=== PATIENT | female | born 1990 | race Caucasian/White ===

== ENCOUNTER 2020-02-24 07:38 | Inpatient (IN) ==
[2020-02-24] MEDS ORDERED: OXYTOCIN 30 UNITS/500 ML BAG IV PRN ×3 (07:51→23:04)
[2020-02-24 08:32] LABS: Hematocrit (blood only) 38.4 % (37-47); Hemoglobin 13.2 g/dL (12.0-16.0); Mean Corpuscular Hemoglobin 33.4 pg (25-34); Mean Corpuscular Volume 97.2 fL (80-100); Mean Platelet Volume 9.7 fL (7.4-10.4); Platelet Count 176 K/uL (130-400); RDW Coefficient of Variation 12.3 % (11.5-14.5); RDW Standard Deviation 43.6 fL (36.4-46.3); Red Blood Count 3.95 M/uL (4.2-5.4); White Blood Count 7.61 K/uL (4.8-10.8)
[2020-02-24 08:33] LABS: Mean Corpuscular Hgb Conc 34.4 g/dL (32-36)
[2020-02-24] MEDS: LACTATED RINGER'S 1,000 ML IV PRN ×3 (09:30→19:55)
--- NOTE | 2020-02-24 10:10 | History & Physical Report ---
Date of Service February 24, 2020 Assessment & Plan (1) Supervision of normal intrauterine in primigravida: 29yo at 41.1 weeks GA. IOL 1. Fetus: Cat 1 2. Labor: Will start with oxytocin, AROM when able 3. Vitals: WNL 4: GBS negative (2) VSD (ventricular septal defect): Normal ECHO History of Present Illness Primary Care Provider: Louise Morel PA-C 29yo at 41.1 weeks GA. Presents for late term IOL. reporting regular mild contractions. No LOF, or VB. Good FM. 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 Pt not changing cat litter. current occupational status: employed current occupation: manager installation @ [employer] Other Information That Helps Us Care for You: No Feels Safe at Home: Yes Safety Concerns: Feels Safe At This Time Smoking Status: Never smoker Hx Alcohol Use: No Hx Substance Use: No Physical Exam Constitutional: WD/WN, vitals as above well developed, well nourished and + well hydrated; no acute distress Eyes: PERRL, conjunctivae normal, anicteric sclerae ENMT: external ear and nose normal, oropharynx normal Neck: trachea midline, no thyromegaly Respiratory: normal respiratory effort, lungs clear to auscultation no respiratory distress, no labored breathing and no cough Skin: no rashes, warm and dry normal turgor Psychiatric: A+Ox3, euthymic affect Apperance: appropriately dressed and appropriately groomed Genitourinary: normal external appearance Manual OB Exam: + cervical dilation (1.5), + cervical effacement 70% and + station -1 OB Exam Monitor Tracing: + external FHT monitor used, + external uterine monitor used, + category I and + normal FHT variability; no early decelerations present, no late decelerations present and no variable decelerations Lymphatic: no cervical or axillary lymphadenopathy Results & Data Vital Signs (Past 12 Hours) Vital Signs Temp Pulse Resp BP 02/24/20 10:01 77 112/70 02/24/20 09:18 82 114/78 02/24/20 07:52 36.9 C 91 H 20 116/77 Coding Level of Care Code None Diagnoses Supervision of normal intrauterine in primigravida Z34.00 VSD (ventricular septal defect) Q21.0
--- NOTE | 2020-02-24 14:15 | Labor Progress Brief Note ---
Date of Service February 24, 2020 Subjective Reason For Note: Routine Evaluation Current Pain Level(1-10): 4 Assessment & Plan (1) Supervision of normal intrauterine in primigravida: 29yo at 41.1 weeks GA. IOL 1. Fetus: Cat 1 2. Labor: Will start with oxytocin, AROM for thin mec 3. Vitals: WNL 4: GBS negative (2) VSD (ventricular septal defect): Normal ECHO Physical Exam Genitourinary: OB Exam Abdomen: + vertex Manual OB Exam: + cervical dilation 3 cm, + cervical effacement 70%, + station -1 and + amniotic fluid meconium OB Exam Monitor Tracing: + external FHT monitor used, + external uterine monitor used, + category I and + normal FHT variability; no early decelerations present, no late decelerations present and no variable decelerations Results & Data Vital Signs (Past 12 Hours) Vital Signs Temp Pulse Resp BP 02/24/20 14:02 65 94/54 L 02/24/20 13:02 77 20 111/67 02/24/20 12:01 36.6 C 72 20 111/69 02/24/20 11:07 36.8 C 69 20 108/68 02/24/20 10:01 77 112/70 02/24/20 09:18 82 114/78 02/24/20 07:52 36.9 C 91 H 20 116/77 Coding Level of Care Code None Diagnoses Supervision of normal intrauterine in primigravida Z34.00 VSD (ventricular septal defect) Q21.0
[2020-02-24] MEDS ORDERED: ePHEDrine sulfate 50 MG/ML AMP ONE (18:07)
[2020-02-24] MEDS ORDERED: BUPIVACAINE 0.25% 30 ML VIAL ONE (18:07)
[2020-02-24] MEDS ORDERED: fentaNYL citrate 100 MCG/2 ML VIAL ONE (18:07)
[2020-02-24] MEDS ORDERED: fentaNYL 2MCG/ML ROPIV 1.25MG/ML 100 ML BAG EPI ONE (18:08)
--- NOTE | 2020-02-24 18:23 | Anesthesiology Consultation ---
Date of Service February 24, 2020 Assessment & Plan (1) Encounter for pre-operative examination: Chart Review Chart Review: Acceptable Risk for Surgery Consults Requested none Proposed Anesthesia Risk / Benefits Reviewed With: PT / POA / Parent / Guardian, Accepts Plan and Informed Consent Obtained History Height/Weight Height: 5 ft 3.75 in Weight: 75.75 kg Allergies Allergy/AdvReac Type Severity Reaction Status Date / Time No Known Allergies Allergy Verified 02/24/20 08:00 Medications Home Medications Medication Instructions Recorded Confirmed Last Taken vit-iron fum-folic ac 1 tab PO DAILY 02/24/20 02/24/20 02/24/20 00:01 [ Vitamin] Active Medications Generic Name Dose Route Start Last Admin Trade Name Freq PRN Reason Stop Dose Admin Lactated Ringer's 1,000 mls @ 125 mls/hr 02/24/20 08:05 02/24/20 17:22 Lr IV 02/26/20 08:04 125 mls/hr .Q8H PRN Administration L&D Protocol Protocol Oxytocin 30 units in 500 mls @ 10 mls/hr 02/24/20 07:51 02/24/20 17:20 Pitocin IV 02/26/20 07:50 0.6 units/hr .Q24H PRN 10 mls/hr Labor Induction/Augmentation Titration Protocol 0.6 UNITS/HR Past Medical History Medical History Kidney stone Migraine UTI (urinary tract infection) Varicella vaccination VSD (ventricular septal defect) Yeast infection Exercise / Class Metabolic Activity II 4-5 Yardwork/Stairs/Walk up hill Past Family History Family History Grandmother (Maternal) Diabetes Hypercholesteremia Heart disease Hypertension Depression Grandfather (Paternal) Diabetes Grandfather (Paternal) No problems noted. Grandmother (Paternal) Heart disease Hypertension Father Depression Past Surgical History Surgical History No pertinent past surgical history Past Anesthesia History No Hx of Anesthesia Complications and No Family Hx of Anesthesia Complications History of PONV No Hx of PONV and No Hx of Motion Sickness Social History Smoking Status: Never smoker Hx Alcohol Use: No Hx Substance Use: No Physical Exam Vital Signs Last Vital Signs Temp 98.1 F 02/24/20 17:21 Pulse 74 02/24/20 18:15 Resp 20 02/24/20 17:21 BP 122/59 L 02/24/20 17:21 Pulse Ox 100 02/24/20 18:15 ENMT Mouth: no dentition abnormality Thyromental Distance: > or= 3.5 Finger Breadths Mallampati Class: II Neck normal visual inspection Respiratory normal respiratory effort Auscultation: lungs clear to auscultation bilaterally Cardiovascular Rate/Rhythm: regular rate and regular rhythm Testing Laboratory Results 02/24/20 08:20
[2020-02-24] MEDS ORDERED: NALBUPHINE HCL INJ 10 MG/ML AMP IV PRN (18:44)
[2020-02-24] MEDS ORDERED: ONDANSETRON INJ 2 MG/ML 2 ML VIAL IV PRN (18:44)
[2020-02-24] MEDS ORDERED: NALOXONE HCL 1 MG in SODIUM CHLORIDE 0.9% 1000ML 1,000 ML IV PRN (18:44)
[2020-02-24] MEDS ORDERED: ePHEDrine sulfate 50 MG/ML AMP IV PRN (18:44)
[2020-02-24] MEDS ORDERED: DiphenhydrAMINE HCL 50 MG/ML VIAL IV PRN (18:44)
[2020-02-24] MEDS ORDERED: NALOXONE HCL 0.4 MG/1 ML VIAL/CARP IV PRN (18:44)
[2020-02-24] MEDS ORDERED: fentaNYL 2MCG/ML ROPIV 1.25MG/ML 100 ML BAG EPI PRN (18:44)
--- NOTE | 2020-02-24 19:15 | Labor Progress Brief Note ---
Date of Service February 24, 2020 Subjective Reason For Note: Routine Evaluation Current Pain Level(1-10): 6 Assessment & Plan (1) Supervision of normal intrauterine in primigravida: 29yo at 41.1 weeks GA. IOL 1. Fetus: Cat 1 2. Labor: oxytocin, AROM for thin mec 3. Vitals: WNL 4: GBS negative (2) VSD (ventricular septal defect): Normal ECHO Physical Exam Genitourinary: normal external appearance OB Exam Abdomen: + vertex Manual OB Exam: + cervical dilation 4 cm, + cervical effacement 90%, + station 0 and + amniotic fluid meconium OB Exam Monitor Tracing: + external FHT monitor used, + external uterine monitor used, + category I and + normal FHT variability; no early decelerations present, no late decelerations present and no variable decelerations Results & Data Vital Signs (Past 12 Hours) Vital Signs Temp Pulse Resp BP Pulse Ox 02/24/20 19:06 70 116/60 02/24/20 19:05 75 99 02/24/20 19:01 72 110/65 02/24/20 19:00 67 99 02/24/20 18:57 70 113/63 02/24/20 18:55 63 99 02/24/20 18:51 74 123/58 L 02/24/20 18:50 67 98 02/24/20 18:45 71 99 02/24/20 18:44 75 113/61 02/24/20 18:42 68 113/59 L 02/24/20 18:40 74 109/62 99 02/24/20 18:38 72 113/61 02/24/20 18:37 76 112/61 02/24/20 18:35 80 100 02/24/20 18:30 89 100 02/24/20 18:25 92 H 100 02/24/20 18:20 79 100 02/24/20 18:15 74 100 02/24/20 17:21 36.7 C 74 20 122/59 L 02/24/20 16:17 70 111/52 L 02/24/20 15:03 36.9 C 68 20 117/72 02/24/20 14:02 65 94/54 L 02/24/20 13:02 77 20 111/67 02/24/20 12:01 36.6 C 72 20 111/69 02/24/20 11:07 36.8 C 69 20 108/68 02/24/20 10:01 77 112/70 02/24/20 09:18 82 114/78 02/24/20 07:52 36.9 C 91 H 20 116/77 Coding Level of Care Code None Diagnoses Supervision of normal intrauterine in primigravida Z34.00 VSD (ventricular septal defect) Q21.0
[2020-02-24] MEDS ORDERED: CALCIUM CARBONATE 500 MG CHEWABLE TAB PO PRN (21:39)
[2020-02-24] MEDS ORDERED: BENZOCAINE 20% AER SPR 82.5 GM CAN EXT PRN (23:04)
[2020-02-24] MEDS ORDERED: SUPERCREAM 0.870% 15 GM JAR EXT PRN (23:04)
[2020-02-24] MEDS ORDERED: ACETAMINOPHEN 325 MG TAB PO PRN (23:04)
[2020-02-24] MEDS ORDERED: DIPHTHERIA/TETANUS/PERTUSSIS 0.5 ML SYR/VIAL IM ONE (23:04)
[2020-02-24] MEDS ORDERED: HYDROCORTISONE ACETATE 25 MG SUPP PR PRN (23:04)
[2020-02-25] MEDS: IBUPROFEN 600 MG TAB PO PRN ×3 (00:43→14:40)
--- NOTE | 2020-02-25 00:50 | Delivery Summary ---
DATE OF OPERATION: 02/24/2020 PROCEDURE: Normal spontaneous vaginal delivery with second-degree perineal laceration repair. SURGEON: Jose Solis MD PREOPERATIVE DIAGNOSIS: Single intrauterine at 41 weeks 1 day gestational age. POSTOPERATIVE DIAGNOSIS: Single intrauterine at 41 weeks 1 day gestational age status post delivery. ESTIMATED BLOOD LOSS: 300 mL DRAINS: Straight cath at the completion of the case. URINE OUTPUT: 400 mL via straight catheterization. COMPLICATIONS: None. FINDINGS: Viable male with weight pending, Apgars of 8 and 9 at 1 and 5 minutes respectively. INDICATIONS: Jolene is a 29-year-old G1, P0, admitted at 41 weeks 1 day gestational age for late term induction of labor. At initial evaluation, the patient was 1.5 cm dilated, 75% effaced, -1 station. Her induction process was started with oxytocin per regular protocol. She underwent artificial rupture of membranes, received an epidural for anesthesia. She progressed in labor well and achieved complete-complete +2 dilation. DESCRIPTION OF PROCEDURE: The patient progressed to 10 cm dilated, 100% effaced, +2 station, pushed over intact perineum for just under 1 hour with epidural anesthesia and delivered a viable male infant with weight and Apgars as noted above. Head of the delivered in JANA position, rest into left transverse. A loose nuchal cord was noted which was delivered through. Body and shoulders quickly followed. The was delivered to maternal abdomen and was noted to be vigorous soon after delivery. A 1-minute delayed cord clamping was initiated, after which the cord was double clamped and cut. Cord blood was then obtained. Attention was then turned to delivery of the placenta, which was delivered intact, 3-vessel cord, gentle cord traction. On inspection of the perineum, vagina, and cervix, there was noted to be a second degree perineal laceration which was repaired in the traditional crown stitch using 3-0 Vicryl. Needle, sponge, and instrument counts were correct at the completion of the case. Both mother and were stable in the immediate post-delivery period. I attest to the content of the Intraoperative Record and any orders documented therein. Any exceptions are noted below. MTDD
[2020-02-25 06:14] LABS: Hematocrit (blood only) 34.3 % (37-47); Hemoglobin 11.9 g/dL (12.0-16.0)
--- NOTE | 2020-02-25 06:55 | Obstetrical Progress Note ---
Date of Service February 25, 2020 Assessment & Plan (1) Encounter for visit: Day 1 . Doing well. Routine care Subjective Ambulation: ambulating normally Voiding: no voiding problems Passing Gas:: Yes Diet Tolerance:: regular diet Lochia:: Moderate Feeding Type:: breast feeding Physical Exam Constitutional WD/WN, vitals as above Respiratory normal respiratory effort; no respiratory distress and no labored breathing Gastrointestinal (Abdomen) Inspection/Auscultation: abdomen normal to inspection; abdomen not distended Percussion/Palpation: abdomen soft; abdomen nontender, no guarding and abdomen not rigid Genitourinary OB Exam Abdomen: + fundal height Fundus: + firm and + relation to umbilicus (Below); not tender and not boggy Results & Data Vital Signs (Past 12 Hours) Vital Signs Temp Pulse Pulse Resp BP BP Pulse Ox 02/25/20 05:25 36.7 C 74 15 103/69 97 02/25/20 01:15 36.7 C 74 16 110/70 98 02/25/20 01:02 72 106/61 02/25/20 00:43 71 114/58 L 02/25/20 00:33 71 116/62 02/25/20 00:18 93 H 121/66 02/25/20 00:03 81 108/62 02/24/20 23:48 78 105/63 02/24/20 23:33 87 114/54 L 02/24/20 23:18 80 124/59 L 02/24/20 23:16 18 02/24/20 23:04 78 142/60 H 02/24/20 23:01 37.0 C 18 02/24/20 23:00 37.0 C 85 98 02/24/20 22:56 93 H 104/68 02/24/20 22:55 81 97 02/24/20 22:50 94 H 98 02/24/20 22:45 95 H 97 02/24/20 22:40 90 98 02/24/20 22:35 126 H 99 02/24/20 22:30 102 H 20 100 02/24/20 22:28 90 124/63 02/24/20 22:25 128 H 97 02/24/20 22:20 88 99 02/24/20 22:19 90 87 L 02/24/20 22:15 109 H 20 75 L 02/24/20 22:10 137 H 100 02/24/20 22:08 107 H 110/55 L 02/24/20 22:05 80 98 02/24/20 22:02 79 92 02/24/20 22:00 108 H 20 96 02/24/20 21:56 120 H 89 L 02/24/20 21:55 112 H 102/50 L 98 02/24/20 21:50 81 100 02/24/20 21:45 91 H 100 02/24/20 21:40 65 92/43 L 100 02/24/20 21:35 61 99 02/24/20 21:30 73 18 98 02/24/20 21:25 72 98 02/24/20 21:23 75 102/63 02/24/20 21:20 73 99 02/24/20 21:15 69 98 02/24/20 21:10 72 100 02/24/20 21:09 69 103/67 02/24/20 21:05 67 99 02/24/20 21:00 71 99 02/24/20 20:55 74 107/63 100 02/24/20 20:50 79 100 02/24/20 20:46 36.9 C 18 02/24/20 20:45 67 99 02/24/20 20:40 71 98 02/24/20 20:39 68 101/50 L 02/24/20 20:35 69 99 02/24/20 20:30 70 18 99 02/24/20 20:25 75 100 02/24/20 20:20 74 100 02/24/20 20:15 74 99 02/24/20 20:10 80 111/62 100 02/24/20 20:05 76 99 02/24/20 20:00 72 18 100 02/24/20 19:56 88 91 02/24/20 19:55 67 99 02/24/20 19:54 70 103/59 L 02/24/20 19:50 84 99 02/24/20 19:45 67 99 02/24/20 19:40 70 97 02/24/20 19:39 73 105/60 02/24/20 19:35 73 98 02/24/20 19:30 72 98 02/24/20 19:25 80 105/65 99 02/24/20 19:20 64 98 02/24/20 19:15 65 98 04/16/20 19:11 37.0 C 18 02/24/20 19:10 37.0 C 78 18 99 02/24/20 19:06 70 116/60 02/24/20 19:05 37.0 C 75 18 99 02/24/20 19:01 72 110/65 02/24/20 19:00 67 99 02/24/20 18:57 70 113/63 02/24/20 18:55 63 99 02/24/20 18:51 74 123/58 L 02/24/20 18:50 67 98 02/24/20 18:45 71 99 02/24/20 18:44 75 113/61 02/24/20 18:42 68 113/59 L 02/24/20 18:40 74 109/62 99 02/24/20 18:38 72 113/61 02/24/20 18:37 76 112/61 02/24/20 18:35 80 100 02/24/20 18:30 89 100 02/24/20 18:25 92 H 100 02/24/20 18:20 79 100 02/24/20 18:15 74 100
[2020-02-25] MEDS: FERROUS SULFATE 325 MG TAB PO SCH (08:07)
[2020-02-25] MEDS: DOCUSATE SODIUM 100 MG CAP PO SCH ×2 (08:07→21:11)
[2020-02-25] MEDS: PRENATAL VITAMIN 1 TAB PO SCH (08:08)
--- NOTE | 2020-02-25 09:33 | Anesthesia Procedure Note ---
Date of Service February 25, 2020 Anesthesia Post Epidural Note Vital Signs Vital Signs: Temp Pulse Resp BP Pulse Ox 36.7 C 74 15 103/69 97 02/25/20 05:25 02/25/20 05:25 02/25/20 05:25 02/25/20 05:25 02/25/20 05:25 Pain Intensity Bilateral Abdomen: Pain Intensity: 1 Notes Mental Status: alert / awake / arousable Nausea / Vomiting: adequately controlled Pain: adequately controlled Airway Patency, RR, SpO2: stable & adequate BP & HR: stable & adequate Hydration State: stable & adequate Neuraxial Anesthesia: was administered and sensory block is resolving Anesthetic Complications: no major complications apparent and Pt Satisfied with anesthetic care Epidural: Removed without complications and With tip intact
[2020-02-25] MEDS ORDERED: bisacodyL 5 MG TABEC PO SCH (20:00)
[2020-02-26] MEDS: IBUPROFEN 600 MG TAB PO PRN ×2 (02:14→06:33)
[2020-02-26] MEDS ORDERED: bisacodyL 10 MG SUPP PR PRN (07:00)
--- NOTE | 2020-02-26 08:07 | Obstetrical Progress Note ---
Date of Service February 26, 2020 Assessment & Plan (1) Supervision of normal intrauterine in primigravida: - doing well - desires d/c - instructions given - f/u in 6 weeks for pp check Subjective Voiding: no voiding problems Feeding Type:: breast feeding Physical Exam Constitutional WD/WN, vitals as above Gastrointestinal (Abdomen) Fundus firm below umbilicus Musculoskeletal No deep calf tenderness Results & Data Vital Signs (Past 12 Hours) Vital Signs Temp Pulse Resp BP 02/26/20 00:00 98.4 F 84 18 110/74
[2020-02-26] MEDS: PRENATAL VITAMIN 1 TAB PO SCH (09:15)
[2020-02-26] MEDS: FERROUS SULFATE 325 MG TAB PO SCH (09:15)
[2020-02-26] MEDS: DOCUSATE SODIUM 100 MG CAP PO SCH (09:15)
== END 2020-02-26 13:05 | disposition home or self-care (01) | DRG 807 ==
LOC: 4S1 07:41 → 4S2 02-25 01:10

== ENCOUNTER 2024-08-31 02:29 | Inpatient (IN) ==
[2024-08-31] MEDS ORDERED: CALCIUM CARBONATE 500 MG CHEWABLE TAB PO PRN (03:06)
[2024-08-31] MEDS ORDERED: LIDOCAINE 1% LOCAL 20 ML VIAL INFIL PRN (03:06)
[2024-08-31] MEDS ORDERED: OXYTOCIN 30 UNITS/NSS 30 UNITS/500 ML BAG IV PRN ×2 (03:06→12:45)
--- NOTE | 2024-08-31 03:09 | History & Physical Report ---
Date of Service August 31, 2024 Assessment & Plan (1) Normal labor: Plan at 40 weeks in early labor. admit. epidural. arom when indicated. anticipate . History of Present Illness Chief Complaint: worsening contractions Primary Care Provider: Louise Morel PA-C Patient is a 34yowf at 40 weeks who presents to labor and delivery with worsening contractions. NOtes some continued light bleeding. no lof. +fm. Much different than they were earlier in the shift. and Delivery Plans Hx of maternal VSD - resolved spontaneously [place] 22-24w [place] [facility] [place] I[place] 09/06, has sticky in L&D book to move up if possible to 09/01. OB Labs: Blood Type B Positive 01/20/24 Antibody Screen NEGATIVE 01/20/24 Hgb 12.1 g/dl (12.0-16.0) 06/09/24 Hct 35.6 % (37.0-47.0) L 06/09/24 MCV 92.5 fL (80.0-100.0) 01/20/24 Plt Count 253 K/uL (130-400) 01/20/24 Rubella IgG Antibody Immune (Immune) 01/20/24 RPR Nonreactive (Nonreactive) 01/20/24 Hep Bs Antigen Neg (Neg) 07/14/19 Hep Bs Antigen NON-REACTIVE (NON-REACTIVE) 01/20/24 Hepatitis C Ab (EIA) NON-REACTIVE (NON-REACTIVE) 01/20/24 HIV 1&2 Ab/P24 Ag 4thGn Neg (Neg) 07/14/19 HIV (1&2) Ag & Ab Conf NON-REACTIVE (NON-REACTIVE) 01/20/24 Glucose 1 Hr 50 gm 149 mg/dl (70-130) H 03/16/24 OB Optional Labs: Chlamydia trachomatis RNA Not Detected (NotDetected) 01/20/24 Neisseria gonorrhoeae RNA Not Detected (NotDetected) 01/20/24 Labs Reviewed: msafp declines smp cfDNA low risk, smp gbs neg Allergies Allergy/AdvReac Type Severity Reaction Status Date / Time No Known Allergies Allergy Verified 08/26/24 08:50 Home Medications Medication Instructions Recorded Confirmed Type prenat.vits,hamida,oen-ymmk-ipovv 1 tab PO DAILY 01/13/24 08/31/24 History nystatin-triamcinolone 100,000 1 applic topical BID 2 weeks #30 04/06/24 08/31/24 Rx unit/gram-0.1 % topical ointment grams Patient History Medical History Encounter for visit Yeast infection Varicella vaccination UTI (urinary tract infection) Kidney stone Surgical History No pertinent past surgical history Family History Grandmother (Maternal) Diabetes Hypercholesteremia Heart disease Hypertension Depression Grandfather (Paternal) Diabetes Grandfather (Paternal) No problems noted. 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 at [employer] Feels Safe at Home: Yes Safety Concerns: Feels Safe At This Time Assistive Devices: Contacts OB History Past Pregnancies Del. Date GA wks Lbr Lgth wt Sex Type del Anes Place Del Prov ? 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
[2024-08-31] MEDS: LACTATED RINGER'S 1,000 ML IV PRN (03:10)
[2024-08-31 03:32] LABS: Hematocrit (blood only) 38.2 % (37.0-47.0); Mean Corpuscular Hemoglobin 32.9 pg (25.0-34.0); Mean Corpuscular Volume 96.7 fL (80.0-100.0); Platelet Count 180 K/uL (130-400); RDW Coefficient of Variation 12.4 % (11.5-14.5); Red Blood Count 3.95 M/uL (4.20-5.40); White Blood Count 7.04 K/ul (4.8-10.8)
[2024-08-31] MEDS ORDERED: diphenhydrAMINE 50 MG/ML VIAL IV PRN (03:38)
[2024-08-31] MEDS ORDERED: SODIUM CHLORIDE 0.9% PF INJ 10 ML VIAL EPI PRN (03:38)
[2024-08-31] MEDS ORDERED: NALOXONE HCL 1 MG in SODIUM CHLORIDE 0.9% 1,000 ML IV PRN (03:38)
[2024-08-31] MEDS ORDERED: LIDOCAINE 2%/EPINEPHRINE 1:200,000 20 ML PF EPI STA (03:38)
[2024-08-31] MEDS ORDERED: fentaNYL citrate PF 100 MCG/2 ML VIAL EPI STA (03:38)
[2024-08-31] MEDS ORDERED: NALOXONE HCL 0.4 MG/1 ML VIAL/CARP IV PRN (03:38)
[2024-08-31] MEDS ORDERED: fentaNYL citrate PF 100 MCG/2 ML VIAL EPI PRN (03:38)
[2024-08-31] MEDS ORDERED: BUPIVACAINE 0.25% PF 30 ML VIAL EPI PRN (03:38)
[2024-08-31] MEDS ORDERED: ROPIVACAINE 0.5% PF 5 MG/ML 20 ML VIAL EPI PRN (03:38)
[2024-08-31] MEDS ORDERED: BUPIVACAINE 0.25% PF 30 ML VIAL EPI STA (03:38)
[2024-08-31] MEDS ORDERED: NALBUPHINE HCL INJ 10 MG/ML AMP IV PRN (03:38)
[2024-08-31] MEDS ORDERED: LIDOCAINE 2% MPF LOCAL 5 ML VIAL EPI PRN (03:38)
[2024-08-31] MEDS ORDERED: fentANYL 2 MCG/ML BUPIVacaine 0.125%-NSS 100ML BAG EPI PRN (03:38)
--- NOTE | 2024-08-31 03:40 | Anesthesiology Consultation ---
Date of Service August 31, 2024 Assessment & Plan Chart Review Chart Review: Acceptable Risk for Labor Epidural Consults Requested none History Height/Weight Height: 5 ft 3 in Weight: 78.018 kg Allergies Allergy/AdvReac Type Severity Reaction Status Date / Time No Known Allergies Allergy Verified 08/26/24 08:50 Medications Home Medications Medication Instructions Recorded Confirmed Last Taken prenat.vits,hamida,izo-bdgf-wlqua 1 tab PO DAILY 01/13/24 08/31/24 08/30/24 nystatin-triamcinolone 100,000 1 applic topical BID 2 weeks #30 04/06/24 08/31/24 Unknown unit/gram-0.1 % topical ointment grams Active Medications Generic Name Dose Route Start Last Admin Trade Name Freq PRN Reason Stop Dose Admin Lactated Ringer's 1,000 mls @ 125 mls/hr 08/31/24 03:06 08/31/24 03:10 Lr IV 09/02/24 03:05 999 mls/hr .Q8H PRN Administration L&D Protocol Protocol Past Medical History Medical History Encounter for visit Yeast infection Varicella vaccination UTI (urinary tract infection) Kidney stone Past Family History Family History Grandmother (Maternal) Diabetes Hypercholesteremia Heart disease Hypertension Depression Grandfather (Paternal) Diabetes Grandfather (Paternal) No problems noted. Grandmother (Paternal) Heart disease Hypertension Father Depression Denies family history of Ovarian cancer Prostate cancer Breast cancer Colorectal cancer Past Surgical History Surgical History No pertinent past surgical history Social History Smoking Status: Never smoker Do You Dip or Chew Tobacco: No Hx Alcohol Use: No Hx Substance Use: No Physical Exam Vital Signs Last Vital Signs Temp 36.8 C 08/31/24 02:47 Pulse 75 08/31/24 02:47 Resp 18 08/31/24 02:47 BP 117/77 08/31/24 02:47 Testing Laboratory Results 08/31/24 03:16
[2024-08-31] MEDS: LIDOCAINE 2%/EPINEPHRINE 1:200,000 20 ML PF ONE (04:07)
[2024-08-31] MEDS: fentANYL 2 MCG/ML BUPIVacaine 0.125%-NSS 100ML BAG ONE (04:08)
[2024-08-31] MEDS: ePHEDrine sulfate 50 MG/ML AMP IV PRN (04:37)
--- NOTE | 2024-08-31 06:08 | Labor Progress Brief Note ---
Date of Service August 31, 2024 Subjective comfortable after epidural Assessment & Plan (1) Normal labor: Plan expectant management. fetus category one. 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 Admission and Anticipated Discharge Date Admission Date: August 31, 2024 Physical Exam Physical Exam: cx--4/80/-1 arom--minimal clear toco--q3-5min efm--150s with mod variability, accels to 170s, no decels Results & Data Vital Signs (Past 12 Hours) Vital Signs Temp Pulse Resp BP Pulse Ox 08/31/24 06:01 110 H 88 L 08/31/24 06:00 97 08/31/24 06:00 85 08/31/24 06:00 84 115/65 08/31/24 05:55 95 H 99 08/31/24 05:50 94 H 98 08/31/24 05:45 80 96 08/31/24 05:44 98 H 108/66 08/31/24 05:40 79 97 08/31/24 05:35 99 H 97 08/31/24 05:30 82 18 97 08/31/24 05:29 96 H 111/68 08/31/24 05:25 85 98 08/31/24 05:22 78 88 L 08/31/24 05:20 80 97 08/31/24 05:15 98 08/31/24 05:15 77 08/31/24 05:15 72 102/58 L 08/31/24 05:10 78 99 08/31/24 05:05 85 99 08/31/24 05:00 75 18 99 08/31/24 04:59 71 110/59 L 08/31/24 04:55 76 100 08/31/24 04:50 73 100 08/31/24 04:45 76 100 08/31/24 04:44 73 110/60 08/31/24 04:40 79 98 08/31/24 04:39 73 97/59 L 08/31/24 04:37 71 90/50 L 08/31/24 04:35 67 99 08/31/24 04:34 80 96/52 L 08/31/24 04:30 85 18 99 08/31/24 04:29 82 102/57 L 08/31/24 04:25 98 08/31/24 04:25 87 08/31/24 04:25 83 107/65 08/31/24 04:20 82 98 08/31/24 04:11 82 120/69 08/31/24 04:10 82 98 08/31/24 04:09 77 117/68 08/31/24 04:07 85 117/68 08/31/24 04:05 79 112/64 97 08/31/24 04:04 75 112/68 08/31/24 04:00 79 98 08/31/24 03:55 97 08/31/24 03:55 84 08/31/24 03:55 93 H 94 08/31/24 02:47 36.8 C 75 18 117/77 08/31/24 02:43 75 117/77 Coding Level of Care Code None Diagnoses Normal labor O80; Z37.9
[2024-08-31] MEDS: fentaNYL citrate PF 100 MCG/2 ML VIAL ONE (06:57)
[2024-08-31] MEDS: ePHEDrine sulfate 50 MG/ML AMP ONE (06:57)
[2024-08-31] MEDS: BUPIVACAINE 0.25% PF 30 ML VIAL ONE (06:57)
[2024-08-31] MEDS: SODIUM CHLORIDE 0.9% PF INJ 10 ML VIAL ONE (06:58)
[2024-08-31] MEDS: SODIUM CHLORIDE 0.9% PF INJ 10 ML VIAL EPI STA (06:58)
[2024-08-31] MEDS: OXYTOCIN 30 UNITS/NSS 30 UNITS/500 ML BAG IV PRN (07:25)
[2024-08-31 12:22] VITALS: O2SAT 94
[2024-08-31] MEDS ORDERED: ACETAMINOPHEN 325 MG TAB PO PRN (12:45)
[2024-08-31] MEDS ORDERED: oxyCODONE/ACETAMINOPHEN 5mg/325mg TAB PO PRN (12:45)
[2024-08-31] MEDS ORDERED: DIPHTHER/TETAN/PERTUS Vaccine (Tdap, Adol/Adult) 0.5mL IM ONE (12:45)
[2024-08-31] MEDS ORDERED: HYDROCORTISONE ACETATE 25 MG SUPP PR PRN (12:45)
[2024-08-31] MEDS ORDERED: bisacodyL 10 MG SUPP PR PRN (12:45)
--- NOTE | 2024-08-31 13:12 | Anesthesia Procedure Note ---
Date of Service August 31, 2024 Anesthesia Post Epidural Note Vital Signs Vital Signs: Temp Pulse Resp BP Pulse Ox 36.6 C 90 16 106/58 L 94 08/31/24 07:30 08/31/24 12:59 08/31/24 07:30 08/31/24 12:59 08/31/24 12:20 Notes Mental Status: alert / awake / arousable and participated in evaluation Nausea / Vomiting: adequately controlled Pain: adequately controlled Airway Patency, RR, SpO2: stable & adequate BP & HR: stable & adequate Hydration State: stable & adequate Neuraxial Anesthesia: was administered and sensory block resolved Anesthetic Complications: no major complications apparent and Pt Satisfied with anesthetic care Epidural: Removed without complications and With tip intact
--- NOTE | 2024-08-31 13:18 | Delivery Summary ---
Vaginal Delivery Summary Date of Service August 31, 2024 Vaginal Delivery Summary and 2nd Degree LAC (perineal) Patient is a 34-year-old 3 para 1-0-1-1 female EDC 08/31/2024 who presented in active labor. Membranes were ruptured for clear fluid. She received epidural analgesia which was effective. Pitocin augmentation was begun and she progressed to full dilation with the urge to push. She pushed effectively over intact perineum for delivery of a viable female infant. After the head was delivered the rest of delivery very was done without maternal effort. The infant was vigorous crying and moving all 4 limbs. She was placed on the mother's abdomen for further attention and drying. After 1 minute, the cord was clamped and cut. After cord blood was obtained, the placenta was expressed intact with a three-vessel cord. bleeding was controlled with dilute Pitocin and fundal massage. A second-degree perineal laceration was repaired with 3-0 chromic in usual fashion. A superficial right labial abrasion was not bleeding and therefore not repaired. QBL was 505 mL. Mother and were doing well after delivery[place] [facility] [place] Delivery Type Details: and 2nd Degree LAC (perineal)
[2024-08-31] MEDS: IBUPROFEN 600 MG TAB PO PRN (15:55)
[2024-08-31] MEDS: BENZOCAINE 20% SPRY 85 APPLN/85 GM CAN EXT PRN (15:55)
[2024-08-31] MEDS: DOCUSATE SODIUM 100 MG CAP PO SCH (20:45)
[2024-09-01] MEDS: ACETAMINOPHEN 325 MG TAB PO PRN (00:09)
--- NOTE | 2024-09-01 06:21 | Obstetrical Progress Note ---
Date of Service <Rikki Varela DO - Last Filed: 09/01/24 07:04> September 01, 2024 Assessment & Plan <Rikki Varela DO - Last Filed: 09/01/24 07:04> (1) state: Patient is a 34yo pp day 1 s/p and 2nd Degree LAC (perineal) Feels well this AM, BP decreased at 93/56 overnight but otherwise VSS Continue care Ambulation and as tolerated Pain control Hgb: 13.0 -> 11.1, asymptomatic Home: tomorrow or next day if baby doing well Follow up with Dr. Walker in 6wks (2) Perineal laceration during delivery: A second-degree perineal laceration was repaired with 3-0 chromic in usual fas hion. Superficial right labial abrasion was not bleeding and therefore not repaired. Monitor for signs of infection Pain control as needed Perineal laceration degree: second degree Qualified Code(s): O70.1 - Second degree perineal laceration during delivery <Kait Walker MD, FACOG - Last Filed: 09/01/24 09:55> (1) state: (2) Perineal laceration during delivery: Subjective <Rikki Varela DO - Last Filed: 09/01/24 07:04> Patient is a 34yo pp day 1 s/p and 2nd Degree LAC (perineal) Ambulation: yes Voiding: urinating, no BM yet Passing gas: yes Diet tolerance: yes, OB reg Lochia: notes some minor gushing Feeding type: breast, bottle if necessary Current pain: minimal Resting comfortably this AM in NAD. Denies fever, chills, headache, vision changes, chest pain, SOB, abdominal pain, LE pain/swelling, or LE numbness/tingling. Review of Systems as above Physical Exam <Rikki Varela DO - Last Filed: 09/01/24 07:04> General: A&Ox4, resting comfortably in NAD, nontoxic in appearance Skin: warm, dry, intact HEENT: NC/AT, anicteric sclerae, conjunctiva w/o injection, moist mucous membranes Heart: +s1/s2, RRR, no m/r/g Lungs: equal air entry b/l, clear to auscultation b/l, no wheeze, rales, or rhonchi Abd: +BS, abdomen soft, uterine fundus firm 1 fingerwidth above umbilicus Ext: no significant swelling, no erythema or tenderness to palpation; no cyanosis or clubbing Neuro: speech intact, no facial droop, moves all extremities on command Results & Data <Rikki Varela DO - Last Filed: 09/01/24 07:04> Vital Signs (Past 12 Hours) Vital Signs Temp Pulse Resp BP O2 Del Method 09/01/24 00:14 36.9 C 80 18 93/56 L Room Air 08/31/24 19:30 37 C 79 18 104/64 Room Air Supervising Physician <Kait Walker MD, FACOG - Last Filed: 09/01/24 09:55> Co-Signing Physician Notes Resident Physician Supervision Note: I interviewed and examined the patient. Discussed with Dr. Varela and agree with findings and plan as documented in the note. Any exceptions or clarifications are listed here: [None] Documented By: Kait Walker MD, FACOG Resident Activity Tracking <Rikki Varela DO - Last Filed: 09/01/24 07:04> Resident Involvement: Resident Care Provided Care Provided: OB Delivery
[2024-09-01 06:58] LABS: Hematocrit (blood only) 33.7 % (37.0-47.0); Hemoglobin 11.1 g/dl (12.0-16.0); Mean Corpuscular Hemoglobin 33.1 pg (25.0-34.0); Mean Corpuscular Hgb Conc 32.9 g/dL (32.0-36.0); Mean Corpuscular Volume 100.6 fL (80.0-100.0); Mean Platelet Volume 9.3 fL (9.4-12.4); Platelet Count 131 K/uL (130-400); RDW Coefficient of Variation 12.8 % (11.5-14.5); RDW Standard Deviation 47.2 fL (36.4-46.3); Red Blood Count 3.35 M/uL (4.20-5.40); White Blood Count 5.85 K/ul (4.8-10.8)
[2024-09-01] MEDS: PRENATAL VITAMIN 1 TAB PO SCH (08:21)
[2024-09-01 14:22] VITALS: BP 97/56; PULSE 103; RESP 18; TEMP 97.9
[2024-09-01] MEDS ORDERED: bisacodyL 5 MG TABEC PO SCH (20:00)
== END 2024-09-01 15:40 | disposition home or self-care (01) | DRG 807 ==
LOC: OPB 02:29 → 4S1 02:30 → 4E2 15:13